=== PATIENT | female | born 1985 | race Caucasian/White ===

== ENCOUNTER 2018-09-16 15:32 | Emergency (ER) | payer SELFPAY ==
[~2018-09-16] VITALS: Ht 160 cm; Wt 65.7 kg
[2018-09-16] MEDS ORDERED: KETOROLAC 30 MG/1 ML ONE (16:18)
[2018-09-16] MEDS ORDERED: LORazepam 2 MG/ML, 1ML ONE (16:18)
[2018-09-16] MEDS ORDERED: MORPHINE SULFATE 4 MG/ML, 1ML ONE (16:19)
--- NOTE | 2018-09-16 16:21 | NUR ---
CTA PENDING NEG. BETA.
[2018-09-16 16:27] LABS: MEAN CORPUSCULAR HGB CONC 33.5 g/dL (32.4-35.8); MEAN CORPUSCULAR VOLUME 89.4 fL (80-100); MEAN PLATELET VOLUME 8.3 fL (7.4-10.4); PLATELET COUNT 361 x10^3/uL (130-400); RED BLOOD COUNT 4.91 x10^6/uL (3.82-5.3); RED CELL DISTRIBUTION WIDTH 12.6 % (9.6-15.2)
--- NOTE | 2018-09-16 16:28 | NUR ---
pt medicated for pain and anxiety per emar
[2018-09-16] MEDS ORDERED: KETOROLAC 30 MG/1 ML IVPush ONE (16:30)
[2018-09-16] MEDS ORDERED: MORPHINE SULFATE 4 MG/ML, 1ML IVPush PRN (16:30)
[2018-09-16] MEDS ORDERED: LORazepam 2 MG/ML, 1ML IVPush ONE (16:30)
[2018-09-16 16:38] LABS: INTERNATIONAL NORMALIZED RATIO 1.01 (0.93-1.1); PROTHROMBIN TIME 10.7 Seconds (9.6-11.5)
[2018-09-16 16:40] LABS: ALBUMIN 3.9 g/dL (3.4-5.0); ANION GAP 7 mmol/L (5-15); CALCIUM 9.1 mg/dL (8.5-10.1); CHLORIDE 104 mmol/L (98-107); CREATININE 0.94 mg/dL (0.55-1.02)
[2018-09-16 16:43] LABS: TROPONIN I < 0.015 ng/mL (0.000-0.045)
--- NOTE | 2018-09-16 16:46 | NUR ---
WBC ELEVATED. DR. AGUIRRE NOTIFIED
[2018-09-16 16:49] LABS: MD YES
[2018-09-16 16:51] LABS: BAND#(MANUAL) 2.36 x10^3/uL; BANDS%(MANUAL) 10 % (0-7); LYMPH#(MANUAL) 0.47 x10^3/uL (1-3.4); LYMPHS% (MANUAL) 2 % (22-44); MONOS#(MANUAL) 0.24 x10^3/uL (0.3-2.7); MONOS% (MANUAL) 1 % (2-9); SEG#(MANUAL) 20.53 x10^3/uL (1.8-6.8); SEGS% (MANUAL) 87 % (42-75)
[2018-09-16 16:52] LABS: <PLATELET ESTIMATE> ADEQUATE; <PLT MORPHOLOGY> NORMAL PLT MORPH; <RBC MORPHOLOGY> NORMAL
--- NOTE | 2018-09-16 16:56 | NUR ---
PT TO CT
--- NOTE | 2018-09-16 17:10 | NUR ---
PT BACK FROM CT
[2018-09-16] MEDS ORDERED: OMNIPAQUE 350 MG/ML, 100ML BOTTLE ONE (17:15)
--- NOTE | 2018-09-16 17:26 | NUR ---
BLOOD CULTURES BEING DRAWN, WILL START ABX AFTER LAB IS DONE
[2018-09-16] MEDS ORDERED: CEFTRIAXONE PMX 1GM/50ML 50 ML ONE (17:28)
[2018-09-16] MEDS ORDERED: AZITHROMYCIN 500 MG in SODIUM CHLORIDE 0.9% 250 ML IV ONE (17:30)
[2018-09-16] MEDS ORDERED: CEFTRIAXONE PMX 1GM/50ML 50 ML IV ONE (17:30)
--- NOTE | 2018-09-16 18:02 | NUR ---
DR AGUIRRE INFORMED PT THAT SHE SHOULD BE ADMITTED. PT STATES "MY DOG HAS CANCER SO I NEED TO GET HOME, I'M SORRY, I'M NOT GOING TO STAY." PER DR. AGUIRRE, FINISH IV ABX THEN PT CAN LEAVE AMA
[2018-09-16 18:41] VITALS: BP 110/64
--- NOTE | 2018-09-16 18:56 | NUR ---
REPORT FROM YOLANDA OLIVEROS. ABX INFUSING. PT TO BE DISCHARGED AMA AFTER MEDICATION.
--- NOTE | 2018-09-16 19:33 | NUR ---
Patient given discharge instructions and they have confirmed that they understand the instructions. Ptatient signed ama papers and understands the risks. Patient ambulatory with steady gait.
== END 2018-09-16 19:36 | disposition left against medical advice (07) ==
LOC: ED 18:13
DX: A41.9 Sepsis, unspecified organism (principal); J15.8 Pneumonia due to other specified bacteria
CPT/HCPCS: 36415; 71275; 80048; 82040; 83605; 83880; 84145; 84484; 84703; 85025; 85610; 85730; 87040; 93005; 96365; 96366; 96368; 96375; 99284; J0456; J0696; J1885; J2060; J7050; Q9967